=== PATIENT | female | born 1985 | race Caucasian/White ===

== ENCOUNTER 2021-02-26 19:58 | Emergency (ER) | payer MEDICAID ==
[~2021-02-26] VITALS: Ht 157.5 cm; Wt 59.0 kg
[2021-02-26 21:38] VITALS: BP 116/60
== END 2021-02-26 21:39 | disposition home or self-care (01) ==
LOC: ER 19:58
DX: G56.03 Carpal tunnel syndrome, bilateral upper limbs (principal)
CPT/HCPCS: 99281